=== PATIENT | male | born 1990 | race Caucasian/White ===

== ENCOUNTER 2016-10-22 01:45 | Emergency (ER) | payer OTHER ==
[~2016-10-22] VITALS: Ht 185.4 cm; Wt 72.0 kg
[2016-10-22 01:47] VITALS: BP 128/79; PULSE 108; RESP 18; TEMP 98; O2SAT 98
--- NOTE | 2016-10-22 02:50 | PD ---
HPI Chief Complaint: Psychiatric Symptoms Time Seen by Provider: 02:46 Travel History International Travel<30 days: No Contact w/Intl Traveler<30days: No Traveled to known affect area: No History of Present Illness HPI 26-year-old white male presents to emergency department on a voluntary basis for psychological evaluation. The patient states that he is feeling increasingly depressed and having suicidal thoughts without plan. He states that he's been depressed for at least 10 years. He has cut himself in the past. He states that he intends on slitting his wrists. He denies any toxic ingestions. He does have a history of substance abuse. He states that he drinks alcohol, smokes marijuana, heroin and snorts cocaine. He last used alcohol prior to coming in and cocaine this morning. He states that he had just flown in from [place] today. He's an urban outdoorsman. He is homeless. He states that he prefers to live in a tent. His mother allegedly last year from colon cancer. He states that he had gone to [place] where she had grown out. His father is a partially retired real estate associate attorney who lives and [place]. He states that he gets along was father but does not stay with him. The patient denies any active medical complaints other than his depression and substance abuse. He states that he is not here looking for a place to stay. He states that he is concerned that he may hurt himself. He denies any homicidal ideation. [facility] Past Medical History Narrative Medical Anxiety, depression, substance abuse Anxiety: Yes Depression: Yes Tetanus Vaccination: Unknown Past Surgical History Surgical History: No Previous Surgery Social History Alcohol Use: Yes (1 LITER OF RUM NIGHTLY) Tobacco Use: Yes (1 PPD) Substance Use: Yes (MARIJUANA, COKE, HEROIN. SNORTED COKE TODAY) Allergies-Medications (Allergen,Severity, Reaction): Coded Allergies: No Known Allergies (Unverified , 10/22/16) Reported Meds & Prescriptions Reported Meds & Active Scripts Active No Active Prescriptions or Reported Medications Review of Systems Except as stated in HPI: all other systems reviewed are Neg Psychiatric: Positive: Depression, Suicidal Ideations, Mood Disorder, Substance Abuse, No: Anxiety, Disorder of Thought, Homicidal Ideation Physical Exam Narrative GENERAL: Well-nourished, well-developed patient. SKIN: Warm and dry. HEAD: Normocephalic and atraumatic. EYES: No scleral icterus. No injection or drainage. ENT: No nasal drainage noted. Mucous membranes pink. Airway patent. NECK: Supple, trachea midline. Moves head freely without obvious discomfort. CARDIOVASCULAR: Regular rate and rhythm without murmurs, gallops, or rubs. RESPIRATORY: Breath sounds equal bilaterally. No accessory muscle use. GASTROINTESTINAL: Abdomen soft, non-tender, nondistended. EXTREMITIES: No cyanosis or edema. BACK: Nontender without obvious deformity. No CVA tenderness. NEURO: Patient is alert and oriented. no sensorimotor deficits. Nonfocal. Normal speech. PSYCH: No delusions. No auditory or visual hallucinations. Data Data Last Documented VS Vital Signs Date Time Temp Pulse Resp B/P Pulse Ox O2 Delivery O2 Flow Rate FiO2 10/22/16 01:47 98.0 108 18 128/79 98 Orders Psych Screen (10/22/16 02:08) Complete Blood Count With Diff (10/22/16 02:28) Comprehensive Metabolic Panel (10/22/16 02:28) Drug Screen, Random Urine (10/22/16 02:28) Alcohol (Ethanol) (10/22/16 02:28) Labs Laboratory Tests Test 10/22/16 02:43 White Blood Count 15.7 TH/MM3 Red Blood Count 5.12 MIL/MM3 Hemoglobin 15.8 GM/DL Hematocrit 45.1 % Mean Corpuscular Volume 88.1 FL Mean Corpuscular Hemoglobin 30.8 PG Mean Corpuscular Hemoglobin 35.0 % Concent Red Cell Distribution Width 13.7 % Platelet Count 270 TH/MM3 Mean Platelet Volume 7.9 FL Neutrophils (%) (Auto) 69.5 % Lymphocytes (%) (Auto) 21.1 % Monocytes (%) (Auto) 8.3 % Eosinophils (%) (Auto) 0.4 % Basophils (%) (Auto) 0.7 % Neutrophils # (Auto) 10.9 TH/MM3 Lymphocytes # (Auto) 3.3 TH/MM3 Monocytes # (Auto) 1.3 TH/MM3 Eosinophils # (Auto) 0.1 TH/MM3 Basophils # (Auto) 0.1 TH/MM3 CBC Comment DIFF FINAL Differential Comment Sodium Level 142 MEQ/L Potassium Level 3.9 MEQ/L Chloride Level 108 MEQ/L Carbon Dioxide Level 23.6 MEQ/L Anion Gap 10 MEQ/L Blood Urea Nitrogen 4 MG/DL Creatinine 0.82 MG/DL Estimat Glomerular Filtration 115 ML/MIN Rate Random Glucose 100 MG/DL Calcium Level 8.6 MG/DL Total Bilirubin 0.5 MG/DL Aspartate Amino Transf 24 U/L (AST/SGOT) Alanine Aminotransferase 31 U/L (ALT/SGPT) Alkaline Phosphatase 113 U/L Total Protein 8.0 GM/DL Albumin 3.8 GM/DL Ethyl Alcohol Level 279 MG/DL MDM Medical Decision Making Medical Screen Exam Complete: Yes Emergency Medical Condition: Yes Medical Record Reviewed: Yes Interpretation(s) Laboratory Tests Test 10/22/16 02:43 White Blood Count 15.7 TH/MM3 Red Blood Count 5.12 MIL/MM3 Hemoglobin 15.8 GM/DL Hematocrit 45.1 % Mean Corpuscular Volume 88.1 FL Mean Corpuscular Hemoglobin 30.8 PG Mean Corpuscular Hemoglobin 35.0 % Concent Red Cell Distribution Width 13.7 % Platelet Count 270 TH/MM3 Mean Platelet Volume 7.9 FL Neutrophils (%) (Auto) 69.5 % Lymphocytes (%) (Auto) 21.1 % Monocytes (%) (Auto) 8.3 % Eosinophils (%) (Auto) 0.4 % Basophils (%) (Auto) 0.7 % Neutrophils # (Auto) 10.9 TH/MM3 Lymphocytes # (Auto) 3.3 TH/MM3 Monocytes # (Auto) 1.3 TH/MM3 Eosinophils # (Auto) 0.1 TH/MM3 Basophils # (Auto) 0.1 TH/MM3 CBC Comment DIFF FINAL Differential Comment Sodium Level 142 MEQ/L Potassium Level 3.9 MEQ/L Chloride Level 108 MEQ/L Carbon Dioxide Level 23.6 MEQ/L Anion Gap 10 MEQ/L Blood Urea Nitrogen 4 MG/DL Creatinine 0.82 MG/DL Estimat Glomerular Filtration 115 ML/MIN Rate Random Glucose 100 MG/DL Calcium Level 8.6 MG/DL Total Bilirubin 0.5 MG/DL Aspartate Amino Transf 24 U/L (AST/SGOT) Alanine Aminotransferase 31 U/L (ALT/SGPT) Alkaline Phosphatase 113 U/L Total Protein 8.0 GM/DL Albumin 3.8 GM/DL Ethyl Alcohol Level 279 MG/DL Differential Diagnosis MDM: High Differential diagnoses: Schizophrenia, schizoaffective disorder, bipolar, anxiety, depression, adjustment reaction, mood disorder NOS, ODD, depressive disorder NOS, dementia, dementia with agitation, psychosis NOS, substance induced mood disorder, intermittent explosive disorder, Asperger syndrome, infection,electrolyte abnormality, malingering. Narrative Course Mental health screening discussed with the patient. Psychiatric screen ordered. The patient is been medically cleared. This is substance induced mood disorder, PSA Diagnosis Primary Impression: Substance induced mood disorder Additional Impression: Polysubstance abuse Scripts No Active Prescriptions or Reported Meds Condition: Stable Miguel Candelaria Oct 22, 2016 02:50
[2016-10-22 02:57] LABS: AUTOMATED NEUTROPHIL # 10.9 TH/MM3 (1.8-7.7); BASOPHIL # 0.1 TH/MM3 (0-0.2); BASOPHIL % 0.7 % (0.0-2.0); EOSINOPHIL # 0.1 TH/MM3 (0-0.4); EOSINOPHIL % 0.4 % (0.0-4.0); HEMATOCRIT 45.1 % (39.0-51.0); HEMO FLAGS DIFF FINAL; LYMPH % 21.1 % (9.0-44.0); LYMPHOCYTE # 3.3 TH/MM3 (1.0-4.8); MEAN CELL VOLUME 88.1 FL (80.0-100.0); MEAN CORPUSCULAR HEMOGLOBIN 30.8 PG (27.0-34.0); MONO % 8.3 % (0.0-8.0); NEUT % 69.5 % (16.0-70.0); PLATELET COUNT 270 TH/MM3 (150-450); RED BLOOD COUNT 5.12 MIL/MM3 (4.50-5.90); RED CELL DISTRIBUTION WIDTH 13.7 % (11.6-17.2); WHITE BLOOD COUNT 15.7 TH/MM3 (4.0-11.0)
[2016-10-22 03:37] LABS: ALKALINE PHOSPHATASE 113 U/L (45-117); ALT (GPT) 31 U/L (12-78); ANION GAP 10 MEQ/L (5-15); AST (GOT) 24 U/L (15-37); BICARBONATE 23.6 MEQ/L (21.0-32.0); BLOOD UREA NITROGEN 4 MG/DL (7-18); CHLORIDE 108 MEQ/L (98-107); GLOMERULAR FILTRATION RATE 115 ML/MIN (>89); SODIUM (NA) 142 MEQ/L (136-145); TOTAL BILIRUBIN ADULT 0.5 MG/DL (0.2-1.0)
[2016-10-22 03:38] LABS: POTASSIUM 3.9 MEQ/L (3.5-5.1)
[2016-10-22 09:17] VITALS: BP 115/58; PULSE 92; RESP 15; O2SAT 97
[2016-10-22 12:15] VITALS: BP 128/62; PULSE 87; RESP 18; TEMP 98.6; O2SAT 95
[2016-10-22 14:00] VITALS: BP 118/70; PULSE 83; RESP 17
[2016-10-22 18:03] VITALS: BP 122/71; PULSE 96; RESP 17; TEMP 99.4; O2SAT 95
[2016-10-22 20:11] LABS: AMPHETAMINE, URINE NEG (NEG); BARBITURATES, URINE NEG (NEG); COCAINE, URINE POS (NEG)
[2016-10-22 22:56] VITALS: BP 131/69; PULSE 72; RESP 18
== END 2016-10-22 23:09 ==
LOC: NEPA 01:45 → NEPJ 23:09
DX: F39 Unspecified mood [affective] disorder (principal); F41.8 Other specified anxiety disorders; F12.90 Cannabis use, unspecified, uncomplicated; F17.210 Nicotine dependence, cigarettes, uncomplicated; F19.10 Other psychoactive substance abuse, uncomplicated; Z59.0 Homelessness
CPT/HCPCS: 80053; 80307; 80320; 85025; 99285

== ENCOUNTER 2016-10-24 03:16 | Emergency (ER) | payer OTHER ==
[2016-10-24 03:59] VITALS: BP 129/62; PULSE 96; RESP 20; TEMP 97.7; O2SAT 96
--- NOTE | 2016-10-24 04:23 | PD ---
HPI Chief Complaint: Psychiatric Symptoms Time Seen by Provider: 04:17 Travel History International Travel<30 days: No Contact w/Intl Traveler<30days: No Traveled to known affect area: No History of Present Illness HPI 26-year-old white male returns to the ER under Jennings act this evening. According to the patient he had notified police that he was feeling depressed and having thoughts of self-harm. This is a patient who had just seen a few days earlier. He has a history of substance abuse and homelessness. He states that his social issues have caused him to feel depressed. He denies any active plan on self-harm. No homicidal ideation. He denies any acute medical complaints. He does endorse substance abuse [facility] Past Medical History Anxiety: Yes Depression: Yes Tetanus Vaccination: < 5 Years Influenza Vaccination: No Past Surgical History Surgical History: No Previous Surgery Social History Alcohol Use: Yes (1 pint per day) Tobacco Use: Yes (5 per day) Substance Use: Yes (multiple) Allergies-Medications (Allergen,Severity, Reaction): Coded Allergies: No Known Allergies (Unverified , 10/24/16) Reported Meds & Prescriptions Reported Meds & Active Scripts Active No Active Prescriptions or Reported Medications Review of Systems Except as stated in HPI: all other systems reviewed are Neg Psychiatric: Positive: Depression, Suicidal Ideations, Mood Disorder, Substance Abuse, No: Anxiety, Disorder of Thought, Homicidal Ideation Physical Exam Narrative GENERAL: Well-nourished, well-developed patient. SKIN: Warm and dry. HEAD: Normocephalic and atraumatic. EYES: No scleral icterus. No injection or drainage. ENT: No nasal drainage noted. Mucous membranes pink. Airway patent. NECK: Supple, trachea midline. Moves head freely without obvious discomfort. CARDIOVASCULAR: Regular rate and rhythm without murmurs, gallops, or rubs. RESPIRATORY: Breath sounds equal bilaterally. No accessory muscle use. GASTROINTESTINAL: Abdomen soft, non-tender, nondistended. EXTREMITIES: No cyanosis or edema. BACK: Nontender without obvious deformity. No CVA tenderness. NEURO: Patient is alert and oriented. no sensorimotor deficits. Nonfocal. Normal speech. PSYCH: No delusions. No auditory or visual hallucinations. Data Data Last Documented VS Vital Signs Date Time Temp Pulse Resp B/P Pulse Ox O2 Delivery O2 Flow Rate FiO2 10/24/16 04:01 96 20 10/24/16 03:59 97.7 129/62 96 MDM Medical Decision Making Medical Screen Exam Complete: Yes Emergency Medical Condition: Yes Medical Record Reviewed: Yes Differential Diagnosis MDM: High Differential diagnoses: Schizophrenia, schizoaffective disorder, bipolar, anxiety, depression, adjustment reaction, mood disorder NOS, ODD, depressive disorder NOS, dementia, dementia with agitation, psychosis NOS, substance induced mood disorder, intermittent explosive disorder, Asperger syndrome, infection,electrolyte abnormality, malingering. Narrative Course Mental health screening discussed with the patient. Psychiatric screen ordered. I do not believe any additional laboratory tests have to be done this evening. He was just seen in the ER and laboratory tests have been performed. The patient is medically cleared. This is substance abuse, homelessness, malingering I suspect the patient is not truly suffering from acute mental illness. I suspect this is a malingering behavior on the patient to obtain a domicile. The case has been discussed with Dr. Vilchis. He has evaluated the patient. We both agree that the patient does not truly meet Jennings act criteria. He does not appear to be suffering from mental illness. We suspect this is most likely due to drugs and alcohol. The Jennings act has been lifted and the patient has been placed under a physician's certificate for detox. The patient will be transferred to [facility]. Diagnosis Primary Impression: Polysubstance abuse Additional Impressions: Homeless Malingering Scripts No Active Prescriptions or Reported Meds Disposition: 70 TRANSFER TO OTHER FACILITY Condition: Stable Miguel Candelaria Oct 24, 2016 04:23
--- NOTE | 2016-10-24 06:01 | PD ---
Data Data Last Documented VS Vital Signs Date Time Temp Pulse Resp B/P Pulse Ox O2 Delivery O2 Flow Rate FiO2 10/24/16 07:02 88 20 98 10/24/16 03:59 97.7 129/62 MDM Supervised Visit with GABI: Yes Narrative Course Patient seen and examined by me in addition to Mega Candelaria. Patient is 26 year old male presents on pelayo act 2/2 suicidal thoughs while on marijuana and etoh. Patient is calm and collected, states he wants to get help. States he is thinking of hurting himself. No specific plan for me. He has no psychiatric history except for substance induce mood disorder. Discussed with him that Mr. Candelaria has made arrangements for SMA under physician certificate. I think this is an appropriate disposition for him after our conversation. He is medically stable for SMA. I have lifted the BA and placed a physician certificate. Diagnosis Primary Impression: Polysubstance abuse Additional Impressions: Malingering Homeless Patient Instructions: General Instructions Departure Forms: Tests/Procedures Scripts No Active Prescriptions or Reported Meds Disposition: 70 TRANSFER TO OTHER FACILITY Condition: Stable Leonel Aguirre MD Oct 24, 2016 06:01
== END 2016-10-24 07:07 | disposition short-term general hospital (02) ==
LOC: NEPA 03:16
DX: F19.10 Other psychoactive substance abuse, uncomplicated (principal); F12.90 Cannabis use, unspecified, uncomplicated; F10.10 Alcohol abuse, uncomplicated; Z59.0 Homelessness; Z76.5 Malingerer [conscious simulation]
CPT/HCPCS: 99285